=== PATIENT | female | born 1995 | race Caucasian/White ===

== ENCOUNTER 2016-08-28 15:36 | Emergency (ER) | payer OTHER ==
[2016-08-28 15:51] VITALS: BMI 23.7
--- NOTE | 2016-08-28 16:25 | PDOC ---
History of Present Illness - General Chief Complaint: Pain Stated Complaint: HEADACHES, LT SIDE PAIN Time Seen by Provider: 08/28/16 16:24 History Source: Patient Exam Limitations: No Limitations - History of Present Illness Initial Comments: 0CHIEF COMPLAINT: 20 y/o afebrile female with no significant PMH c/o left sided arm pain and pulling for the past 4 days. HISTORY OF PRESENT ILLNESS: The patient states the best way for her to describe the feeling is that someone is pulling her left arm and it is preventing her from sleep. She says the pain travels up the left side of her neck, into her left face and over into her left anterior chest. SHe states her left face, chest, arm and left leg all feel tingling and at times numb. She denies fever, chills, GUTIERREZ, changes in vision/hearing, earache, cough, sore throat , SOB, abd pain, back pain, hematuria, dysuria, trauma to the affected area. The patient is not currently working and cannot recall any offending injury. Vital signs on arrival are within normal limits. REVIEW OF SYSTEMS: GENERAL/CONSTITUTIONAL: No fever/chills. No weakness. No weight change. HEAD, EYES, EARS, NOSE AND THROAT: No change in vision. No ear pain or discharge. No sore throat. +left face tingling. CARDIOVASCULAR: +left chest pressure. No shortness of breath. RESPIRATORY: No cough, wheezing, or hemoptysis. GASTROINTESTINAL: No abd pain, nausea, vomiting, diarrhea. GENITOURINARY: No dysuria, frequency, or change in urination. MUSCULOSKELETAL: +left arm "pulling" and tingling. +left leg tingling. +left neck pain SKIN: No rash or easy bruising. NEUROLOGIC: No headache, vertigo, loss of consciousness, or loss of sensation. PHYSICAL EXAM: GENERAL: The patient is awake, alert, and fully oriented, in no acute distress. she is well appearing and ambulatory. HEAD: Normal with no signs of trauma. NECK: Symptoms reproduced with flexion of neck. No midline cervical spine TTP or step offs. TTP of left cervical paravertebral muscles, reproducing left arm symptoms. ENT: Pupils equal, round and reactive to light, extraocular movements intact, sclera anicteric, conjunctiva clear. LUNGS: Clear to auscultation bilaterally. Normal excursion. No respiratory distress or use of accessory muscles. CHEST WALL: Reproducible chest wall pain with palpation of left anterior chest wall. CV: RRR, S1/S2, no MRG. Cap refill < 2 sec. ABDOMEN: Soft, non-distended, non-tender even to deep palpation, no hepatomegaly or splenomegaly, no masses. EXTREMITIES: Normal range of motion, no edema. NEUROLOGICAL: Decreased sensation of sharp and light tough on left side of face , left upper extremity and left lower extremity. Normal speech, normal gait. CN II-XII grossly intact. Equal endless track vehicle mechanic strength b/l. Motor intact in b/l UEs and LEs. No facial drooping. No slurred speech. PSYCH: Normal mood, normal affect. SKIN: Warm, dry, normal turgor, no rashes or lesions noted. Past History - Past Medical History Allergies/Adverse Reactions: Allergies Allergy/AdvReac Type Severity Reaction Status Date / Time No Known Allergies Allergy Verified 08/28/16 15:51 Home Medications: Ambulatory Orders NK [No Known Home Medication] 08/28/16 Psychiatric Problems: No Suicide Attempt (Hx): No - Immunization History Immunization Up to Date: Yes (FLU ) - Psycho/Social/Smoking Cessation Hx Anxiety: No Suicidal Ideation: No Smoking Status: No Smoking History: Never smoked Have you smoked in the past 12 months: No Number of Cigarettes Smoked Daily: 0 Hx Alcohol Use: No Drug/Substance Use Hx: No Substance Use Type: None *Physical Exam - Vital Signs Last Vital Signs Temp Pulse Resp BP Pulse Ox 98.1 F 96 H 20 100/54 98 08/28/16 15:48 08/28/16 15:48 08/28/16 15:48 08/28/16 15:48 08/28/16 15:48 Heart Score/ECG Review - ECG Intrepretation Comment:: Twelve-lead EKG was performed and reviewed by . There is normal sinus rhythm with a normal rate. The axis is normal. The intervals are normal. There are no ST or T wave abnormalities. Impression: Normal twelve-lead EKG ED Treatment Course - LABORATORY CBC & Chemistry Diagram: 08/28/16 17:29 08/28/16 17:29 Medical Decision Making - Medical Decision Making A/P: 20 y/o female with left cervical radiculopathy. Plan is as follows: 1. hcg 2. ekg hcg - negative SPoke with Dr. De La O in the main ER. WIll start work up for labs and CT scan of the head in fastrack and then transfer the patient to the main ER. THe patient and her mother were made aware. *DC/Admit/Observation/Transfer Diagnosis at time of Disposition: Numbness and tingling sensation of skin - Discharge Dispostion Condition at time of disposition: Stable
[2016-08-28 17:55] LABS: BASOPHIL 0.5 % (0-2.0); EOSINOPHIL 3.4 % (0-4.5); MCH 29.5 pg (25.7-33.7); MCHC 32.9 g/dl (32.0-36.0); MEAN CELL VOLUME 89.9 fl (80-96); MEAN PLT VOLUME 11.1 fl (7.5-11.1); NEUTROPHILS 72.5 % (42.8-82.8); PLATELET COUNT 181 K/MM3 (134-434); RDW 13.3 % (11.6-15.6); WHITE BLOOD COUNT 9.2 K/mm3 (4.0-10.0)
[2016-08-28 18:22] LABS: ALBUMIN 4.1 g/dl (3.4-5.0); ANION GAP 8 (8-16); CO2 28 mmol/L (21-32); CREATININE 0.8 mg/dL (0.55-1.02); GLUCOSE,RANDOM 85 mg/dL (74-106); MAGNESIUM 2.4 mg/dL (1.8-2.4); SGOT/AST 13 U/L (15-37); SGPT/ALT 16 U/L (12-78)
[2016-08-28 18:28] LABS: ALK PHOS 62 U/L (45-117); BILIRUBIN,TOTAL 0.4 mg/dL (0.2-1.0); TOT PROT 7.7 g/dl (6.4-8.2); TROPONIN I < 0.02 ng/ml (0.00-0.05)
[2016-08-28 19:23] LABS: ERYTHROCYTE SEDIMENTATION RATE 15 mm/hr (0-20)
[2016-08-28] MEDS ORDERED: IBUPROFEN 400 MG TABLET (FP) PO ONE (21:07)
[2016-08-28] MEDS ORDERED: IBUPROFEN 600 MG TABLET (FP) PO ONE (21:28)
--- NOTE | 2016-08-28 21:47 | PDOC ---
*Physical Exam - Vital Signs Last Vital Signs Temp Pulse Resp BP Pulse Ox 98.1 F 96 H 20 100/54 98 08/28/16 15:48 08/28/16 15:48 08/28/16 15:48 08/28/16 15:48 08/28/16 15:48 - Physical Exam Comments: 08/28/16 21:45 Patient was seen initially in [facility] by ART Gutiérrez. Patient is a 20-year-old female who presents to the ER with several days of intermittent paresthesias involving the left sikh, left side of face, left side of the neck, left arm, left side of the trunk and left leg. Patient denies changes in visual acuity, diplopia or urinary or fecal incontinence. In the ER, patient is awake and alert , hemodynamically stable. Neurological evaluation reveals no sensory deficits, there is no sensory level that is appreciated and evaluation; DTRs are +2 at the knee joints, ankle joints and elbow joints bilaterally. I do not suspect acute demyelinating process at this time. Patient reports that she's been intermittently having current symptoms for over 2 years. Patient was seen and evaluated by her primary care physician referred to neurology and for an MRI of brain but has failed to follow up as of this time. We'll administer NSAIDs. Will discharge with neurology follow-up as scheduled. ED Treatment Course - LABORATORY CBC & Chemistry Diagram: 08/28/16 17:29 08/28/16 17:29 - ADDITIONAL ORDERS Additional order review: Laboratory Results 08/28/16 08/28/16 17:29 16:25 Sodium 139 Potassium 4.3 Chloride 103 Carbon Dioxide 28 Anion Gap 8 BUN 9 Creatinine 0.8 Creat Clearance w eGFR > 60 Random Glucose 85 Calcium 9.0 Magnesium 2.4 Total Bilirubin 0.4 AST 13 L ALT 16 Alkaline Phosphatase 62 D Creatine Kinase 64 Troponin I < 0.02 Total Protein 7.7 Albumin 4.1 Urine HCG, Qual Negative 08/28/16 17:29 RBC 4.34 MCV 89.9 MCHC 32.9 RDW 13.3 MPV 11.1 Neutrophils % 72.5 Lymphocytes % 16.9 Monocytes % 6.7 Eosinophils % 3.4 D Basophils % 0.5 - Medications Given in the ED: ED Medications Discontinued Medications Generic Name Dose Route Start Last Admin Trade Name Freq PRN Reason Stop Dose Admin Ibuprofen 400 mg 08/28/16 21:07 08/28/16 21:32 Motrin - PO 08/28/16 21:08 400 mg ONCE ONE Administration *DC/Admit/Observation/Transfer Diagnosis at time of Disposition: Numbness and tingling - Discharge Dispostion Disposition: HOME Condition at time of disposition: Stable - Referrals Referrals: Dai Garcia MD [Primary Care Provider] - - Patient Instructions Printed Discharge Instructions: DI for Numbness/tingling - Post Discharge Activity
[2016-08-28 21:57] VITALS: BP 102/64; PULSE 88; TEMP 98.6
--- NOTE | 2016-08-29 10:34 | EKG ---
Test Reason : Blood Pressure : / mmHG Vent. Rate : 085 BPM Atrial Rate : 085 BPM P-R Int : 126 ms QRS Dur : 084 ms QT Int : 370 ms P-R-T Axes : 021 019 013 degrees QTc Int : 440 ms NORMAL SINUS RHYTHM NORMAL ECG WHEN COMPARED WITH ECG OF 04-APR-2013 22:13, NO SIGNIFICANT CHANGE WAS FOUND Confirmed by DAXA SALEH MD ([id number]) on 08/29/2016 10:34:20 AM Referred By: RANDI Confirmed By:DAXA SALEH MD
== END 2016-08-28 21:55 | disposition home or self-care (01) ==
LOC: JER 15:36
DX: R20.0 Anesthesia of skin (principal)
CPT/HCPCS: 36415; 70450-TC; 80053; 82550; 83735; 84484; 84703; 85025; 85651; 93005; 93010; 99285-25

== ENCOUNTER 2017-04-10 18:59 | Emergency (ER) | payer OTHER ==
--- NOTE | 2017-04-10 19:04 | PDOC ---
Rapid Medical Evaluation Time Seen by Provider: 04/10/17 19:03 Medical Evaluation: Allergies Allergy/AdvReac Type Severity Reaction Status Date / Time No Known Allergies Allergy Verified 04/10/17 19:03 04/10/17 19:03 I have performed a brief in person evaluation of this patient. The patient presents with chief complaint of : cough and itch in throat for 2 months. no pmhx, no PMD. no fever. Pertinent PE findings: cough , non toxic stable vitals. afebrile I have ordered the following: none The patient will proceed to the ER for further evaluation.
[2017-04-10 19:06] VITALS: BP 154/111; PULSE 73; TEMP 98.7; BMI 24.7
--- NOTE | 2017-04-10 19:30 | PDOC ---
History of Present Illness - General Chief Complaint: Respiratory Stated Complaint: COLD SYMPTOMS Time Seen by Provider: 04/10/17 19:03 History Source: Patient Exam Limitations: No Limitations - History of Present Illness Initial Comments: 04/10/17 19:25 21-year-old female presents to the ED with complaints of nasal congestion and cough, and brown discharge from her nose for the past 1-2 months without relief of [id number] medication. Patient denies fever, difficulty breathing, dizziness, or sore throat. Patient is complaining of mild frontal pressure worsened when lying down Timing/Duration: reports: other (1-2 months) Severity: reports: mild Possible Cause: Yes: no prior episodes Associated Symptoms: reports: facial pain, headache, nasal congestion Past History - Travel Traveled outside of the country in the last 30 days: No - Past Medical History Allergies/Adverse Reactions: Allergies Allergy/AdvReac Type Severity Reaction Status Date / Time No Known Allergies Allergy Verified 04/10/17 19:03 Home Medications: Ambulatory Orders NK [No Known Home Medication] 08/28/16 COPD: No Psychiatric Problems: No Other medical history: DENIES. - Immunization History Immunization Up to Date: Yes (FLU ) - Suicide/Smoking/Psychosocial Hx Smoking Status: No Smoking History: Never smoked Have you smoked in the past 12 months: No Number of Cigarettes Smoked Daily: 0 Hx Alcohol Use: No Drug/Substance Use Hx: No Substance Use Type: None Patient Lives Alone: No Lives with/in: parents Review of Systems - Review of Systems Able to Perform ROS?: Yes Constitutional: No: Symptoms Reported HEENTM: Yes: Nose Congestion. No: Throat Pain Respiratory: Yes: Cough ABD/GI: No: Symptoms Reported Musculoskeletal: No: Symptoms Reported Integumentary: No: Symptoms Reported Neurological: Yes: Headache (frontal) *Physical Exam - Vital Signs Last Vital Signs Temp Pulse Resp BP Pulse Ox 98.7 F 73 19 154/111 99 04/10/17 19:03 04/10/17 19:03 04/10/17 19:03 04/10/17 19:03 04/10/17 19:03 - Physical Exam General Appearance: Yes: Nourished, Appropriately Dressed. No: Apparent Distress HEENT: positive: EOMI, JOSHUA, Pharynx Normal, Nasal Congestion, Sinus Tenderness (frontal). negative: Pale Conjunctivae Neck: positive: Supple. negative: Lymphadenopathy (R), Lymphadenopathy (L) Respiratory/Chest: positive: Lungs Clear, Normal Breath Sounds. negative: Respiratory Distress, Accessory Muscle Use Cardiovascular: positive: Regular Rhythm, Regular Rate. negative: Murmur Integumentary: positive: Normal Color, Warm, Moist Neurologic: positive: Motor Strength 5/5 (ambulatory) Medical Decision Making - Medical Decision Making 04/10/17 19:28 Patient with sinus pressure, nasal congestion, and cough for the past 1-2 months. Patient on exam with sinus pressure and symptoms suggestive sinusitis. Patient will be discharged home with antibiotics and nasal spray. *DC/Admit/Observation/Transfer Diagnosis at time of Disposition: Sinusitis - Discharge Dispostion Disposition: HOME Condition at time of disposition: Good - Referrals - Patient Instructions Printed Discharge Instructions: DI for Sinusitis Additional Instructions: Please take antibiotics as prescribed. Use nasal spray as prescribed. - Post Discharge Activity
== END 2017-04-10 19:54 | disposition home or self-care (01) ==
LOC: JERFT 18:59
DX: J01.90 Acute sinusitis, unspecified (principal)
CPT/HCPCS: 99281-25

== ENCOUNTER 2017-05-09 01:35 | Emergency (ER) | payer OTHER ==
[2017-05-09 02:05] VITALS: BP 102/49; PULSE 97; TEMP 98.6; BMI 25.7
--- NOTE | 2017-05-09 03:20 | PDOC ---
Attending Attestation - Resident Resident Name: Manohar Krause - ED Attending Attestation I have performed the following: I have examined & evaluated the patient, The case was reviewed & discussed with the resident, I agree w/resident's findings & plan, Exceptions are as noted - HPI HPI: 05/09/17 03:17 Pain and swollen bump under right armpit since Friday. Denies fever. - Physicial Exam PE: 05/09/17 03:19 Physical Exam General Appearance: Yes: Appropriately Dressed. No: Apparent Distress, Intoxicated HEENT: positive: EOMI, JOSHUA, Normal ENT Inspection, Normal Voice, TMs Normal, Pharynx Normal. negative: Pale Conjunctivae, Photophobia, Scleral Icterus (R), Scleral Icterus (L) Neck: positive: Trachea midline, Normal Thyroid, Supple. negative: Tender, Rigid, Carotid bruit, Stridor, Lymphadenopathy (R), Lymphadenopathy (L), Thyromegaly Respiratory/Chest: positive: Lungs Clear, Normal Breath Sounds. negative: Chest Tender, Respiratory Distress, Accessory Muscle Use, Labored Respiration, RES, Crackles, Rales, Rhonchi, Stridor, Wheezing, Dullness Cardiovascular: positive: Regular Rhythm, Regular Rate, S1, S2. negative: Edema , JVD, Murmur, Bradycardia, Tachycardia Vascular Pulses: Dorsalis-Pedis (R): 2+, Doralis-Pedis (L): 2+ Gastrointestinal/Abdominal: positive: Normal Bowel Sounds, Flat, Soft. negative : Tender, Organomegaly, Pulsatile Mass, Increased Bowel Sounds, Decreased BS, Distended, Guarding, Rebound, Hernia, Hepatomegaly, Spleenomegaly Lymphatic: negative: Adenopathy, Tenderness Musculoskeletal: positive: small lesion to right axilla. no erthyema, slightly fluctuant. negative: CVA Tenderness, Decreased Range of Motion Extremity: positive: Normal Capillary Refill, Normal Inspection, Normal Range of Motion, Pelvis Stable. negative: Tender, Pedal Edema, Swelling, Erythema Integumentary: positive: Normal Color, Dry, Warm. negative: Cyanotic, Erythema , Jaundice, Rash Neurologic: positive: dragline engineer II-XII NML intact, Fully Oriented, Alert, Normal Mood/ Affect, Motor Strength 5/5. negative: EOM Palsy, Facial Droop, Sensory Deficit
--- NOTE | 2017-05-09 03:47 | PDOC ---
History of Present Illness - General Chief Complaint: Pain Stated Complaint: PAIN IN RIGHT ARM Time Seen by Provider: 05/09/17 02:05 History Source: Patient Exam Limitations: No Limitations - History of Present Illness Initial Comments: 05/09/17 03:35 21F with no pmh presents with swelling and pain under her right armpit since Friday. She noticed some pus coming out of it but complains that it is still uncomfortable. No history of folliculitis Past History - Past Medical History Allergies/Adverse Reactions: Allergies Allergy/AdvReac Type Severity Reaction Status Date / Time No Known Allergies Allergy Verified 05/09/17 02:04 Home Medications: Ambulatory Orders Fluticasone Prop 0.05% Nasal [Flonase -] 1 spray NS BID #1 bot 04/10/17 COPD: No Psychiatric Problems: No - Immunization History Immunization Up to Date: Yes (FLU ) - Suicide/Smoking/Psychosocial Hx Smoking Status: No Smoking History: Never smoked Have you smoked in the past 12 months: No Number of Cigarettes Smoked Daily: 0 Information on smoking cessation initiated: No Hx Alcohol Use: No Drug/Substance Use Hx: No Substance Use Type: None Review of Systems - Review of Systems Able to Perform ROS?: Yes Is the patient limited Estonian proficient: No Constitutional: No: Symptoms Reported, Fever HEENTM: No: Symptoms Reported Respiratory: No: Symptoms reported Cardiac (ROS): No: Symptoms Reported ABD/GI: No: Symptoms Reported : No: Symptoms Reported Musculoskeletal: No: Symptoms Reported Integumentary: Yes: See HPI *Physical Exam - Vital Signs Last Vital Signs Temp Pulse Resp BP Pulse Ox 98.6 F 97 H 20 102/49 98 05/09/17 02:04 05/09/17 02:04 05/09/17 02:04 05/09/17 02:04 05/09/17 02:04 - Physical Exam General Appearance: Yes: Nourished, Appropriately Dressed. No: Apparent Distress HEENT: positive: EOMI, JOSHUA Respiratory/Chest: positive: Lungs Clear, Normal Breath Sounds. negative: Chest Tender, Respiratory Distress Cardiovascular: positive: Regular Rhythm, Regular Rate, S1, S2 Extremity: positive: Normal Capillary Refill, Normal Inspection, Normal Range of Motion Integumentary: positive: Normal Color, Dry, Warm, Other (swelling under right armpit, 3-4cm fluctuant lesion with purulence. no erythema or induration) Neurologic: positive: Fully Oriented, Alert, Normal Mood/Affect, Normal Response , Motor Strength 5/5 Procedures - Incision and Drainage I&D Site: Right: Axilla Betadine cleansed: Yes Anesthesia: 1% Lidocaine w/ Epi Blade Size: 11 Plain Packing: Yes Complications: none Medical Decision Making - Medical Decision Making 05/09/17 04:51 This is folliculitis. Incision and drainage performed. Patient ok to go home. *DC/Admit/Observation/Transfer Diagnosis at time of Disposition: Folliculitis - Discharge Dispostion Disposition: HOME Condition at time of disposition: Good Admit: No - Referrals - Patient Instructions Printed Discharge Instructions: DI for Folliculitis Additional Instructions: Well, you have folliculitis, which caused a skin abscess; what now? Return to the ER or any primary care provider in 24 to 48 hours. Come back to the ER if you experience any of the following symptom: fever, chills, reaccumulation of pus in the area, increased pain or redness, red streaks or increased swelling. - Post Discharge Activity
== END 2017-05-09 05:04 | disposition home or self-care (01) ==
LOC: JER 01:35
PROC: 0X940ZZ Drainage of Right Axilla, Open Approach (ICD-10-PCS; principal; 2017-05-09)
DX: L02.411 Cutaneous abscess of right axilla (principal); L73.8 Other specified follicular disorders
CPT/HCPCS: 99283-25

== ENCOUNTER 2017-05-19 19:36 | Emergency (ER) | payer OTHER ==
[2017-05-19 19:55] VITALS: BMI 25.7
--- NOTE | 2017-05-19 19:55 | PDOC ---
Rapid Medical Evaluation Chief Complaint: Headache Time Seen by Provider: 05/19/17 19:51 Medical Evaluation: Allergies Allergy/AdvReac Type Severity Reaction Status Date / Time No Known Allergies Allergy Verified 05/19/17 19:51 05/19/17 19:51 C/o headache, Photophobia, hurts to cough, and blow out nose. currently on augmentin for sinusitis. Hiostory iof headaches. Never this bad as per patient. PE: patient alert ox3. + nasal congestion. Plan: CBC, cmp, UA, UHCG 05/19/17 19:54
[2017-05-19 20:17] LABS: BASO % 0.5 % (0-2.0); EOS % 1.3 % (0-4.5); HEMATOCRIT 35.4 % (32.4-45.2); HEMOGLOBIN 11.7 GM/dL (10.7-15.3); LYMPH % 11.5 % (8-40); MCH 29.5 pg (25.7-33.7); MCHC 33.1 g/dl (32.0-36.0); MEAN CELL VOLUME 89.3 fl (80-96); MEAN PLT VOLUME 10.1 fl (7.5-11.1); MONO % 6.4 % (3.8-10.2); NEUT % 80.3 % (42.8-82.8); PLATELET COUNT 218 K/MM3 (134-434); RBC 3.96 M/mm3 (3.60-5.2); RDW 12.6 % (11.6-15.6); WHITE BLOOD COUNT 14.3 K/mm3 (4.0-10.0)
[2017-05-19] MEDS ORDERED: METOCLOPRAMIDE HCL INJECTION 10 MG/2 ML VIAL IVPUSH ONE (20:29)
[2017-05-19] MEDS ORDERED: SODIUM CHLORIDE 1,000 ML IV STA (20:29)
[2017-05-19] MEDS ORDERED: AMOX TR/POT CLAV 875MG/125MG TABLETS (FP) PO ONE (20:44)
[2017-05-19] MEDS ORDERED: METOCLOPRAMIDE HCL INJECTION 10 MG/2 ML VIAL ONE (20:48)
[2017-05-19] MEDS ORDERED: AMOX TR/POT CLAV 875MG/125MG TABLETS (FP) ONE (20:48)
--- NOTE | 2017-05-19 20:48 | PDOC ---
Attending Attestation - HPI HPI: 05/19/17 20:57 The patient is a 21 year old with a significant PMH of recurrent headaches, sinus surgery and GERD who presents to the emergency department with a progressively worsening headache beginning approximately 4 days ago. She describes her headache as a bilateral sensation which is worse in her forehead and maxillary regions with associated photophobia. She also notes cold-like symptoms including cough, headache, wheezing, and decreased PO intake. She reports being prescribed Augmentin for sinusitis on 05/09/2017 which she has been generally non-compliant with but notes taking a dose about 2 hours ago. Allergies: NKA - Physicial Exam PE: 05/19/17 21:45 Vitals: Triage Vital signs reviewed General Appearance: no acute distress, well nourished well developed, Head: Atraumatic, normocephalic Nose: Nares patent bilaterally;no nasal congestion Throat: Posterior oropharynx without erythema, mucous membranes moist, Cardiac: Regular rate and rhythm, no murmurs, no rubs, no gallops, Lungs: Clear to auscultation bilateral, good air movement bilaterally, Extremities: Full range of motion to all extremities, no cyanosis, clubbing, or edema Neuro: AOX3; Cranial Nerves 2-12 grossly intact, Strength intact to all extremities, Sensation intact to all extremities Psych: normal mood, normal affect <Que Stern - Last Filed: 05/19/17 23:02> - Resident Resident Name: Rell White - ED Attending Attestation I have performed the following: I have examined & evaluated the patient, The case was reviewed & discussed with the resident, I agree w/resident's findings & plan, Exceptions are as noted - Medical Decision Making 05/19/17 23:10 Well-appearing no apparent distress history and examination consistent with upper respiratory infection complicated by sinusitis and headache Differential diagnoses includes URI, sinusitis, migraine headache less likely meningitis given no meningeal signs well-appearing several days of symptomatology We'll treat with IV fluids Reglan Benadryl and reassess Reevaluation patient feels much better asking to go home. Fever improved with Toradol. No meningeal signs on examination. Findings, the need for follow-up and strict return instructions discussed with patient. <Cruz He - Last Filed: 05/19/17 23:12>
[2017-05-19 20:49] LABS: ALBUMIN 3.9 g/dl (3.4-5.0); ANION GAP 7 (8-16); BILIRUBIN,TOTAL 0.3 mg/dL (0.2-1.0); BLOOD UREA NITROGEN 5 mg/dL (7-18); CALCIUM 8.9 mg/dL (8.5-10.1); CHLORIDE 104 mmol/L (98-107); CO2 27 mmol/L (21-32); CREATININE 1.1 mg/dL (0.55-1.02); GLUCOSE,RANDOM 100 mg/dL (74-106); POTASSIUM 4.1 mmol/L (3.5-5.1); SGOT/AST 7 U/L (15-37); SGPT/ALT 11 U/L (12-78); SODIUM 138 mmol/L (136-145); TOT PROT 7.7 g/dl (6.4-8.2)
[2017-05-19 20:49] LABS: URINE APPEARANCE CLEAR; URINE BILIRUBIN NEGATIVE (NEGATIVE); URINE BLOOD NEGATIVE (NEGATIVE); URINE COLOR STRAW; URINE GLUCOSE (UA) NEGATIVE (NEGATIVE); URINE KETONE NEGATIVE (NEGATIVE); URINE LEUK ESTERASE NEGATIVE (NEGATIVE); URINE NITRITE NEGATIVE (NEGATIVE); URINE PROTEIN NEGATIVE (NEGATIVE); URINE UROBILINOGEN NEGATIVE mg/dL (0.2-1.0)
[2017-05-19 20:50] LABS: ALK PHOS 65 U/L (45-117)
[2017-05-19 20:52] LABS: HCG,QUALITATIVE URINE NEGATIVE
--- NOTE | 2017-05-19 21:10 | PDOC ---
History of Present Illness - General Chief Complaint: Migraine Headache Stated Complaint: HEADACHE Time Seen by Provider: 05/19/17 19:51 History Source: Patient Exam Limitations: No Limitations - History of Present Illness Initial Comments: 05/19/17 21:04 Patient is a 21F with history of an unknown sinus surgery when she was a child here today complaining of a headache of three days. Onset was 3 days ago, slowly growing in intensity. Patient denies neck pain. The pain is located bilaterally around both frontal and maxillary sinuses with associated photophobia. She denies fevers, vomiting. She states she was seen here 10 days ago and prescribed augmentin for sinusitis. Just started taking augmentin now. Endorses associated rhinorrhea. Denies chest pain, shortness of breath, abdominal pain. Past History - Past Medical History Allergies/Adverse Reactions: Allergies Allergy/AdvReac Type Severity Reaction Status Date / Time No Known Allergies Allergy Verified 05/19/17 19:51 Home Medications: Ambulatory Orders Fluticasone Prop 0.05% Nasal [Flonase -] 1 spray NS BID #1 bot 04/10/17 Acetaminophen [Tylenol] 650 mg PO QID PRN 05/19/17 Amoxicillin/Potassium Clav [Augmentin 875-125 Tablet] 1 each PO BID 05/19/17 Ibuprofen [Motrin -] 400 mg PO QID 05/19/17 COPD: No Psychiatric Problems: No - Immunization History Immunization Up to Date: Yes (FLU ) - Suicide/Smoking/Psychosocial Hx Smoking Status: No Smoking History: Never smoked Have you smoked in the past 12 months: No Number of Cigarettes Smoked Daily: 0 Hx Alcohol Use: No Drug/Substance Use Hx: No Substance Use Type: None Review of Systems - Review of Systems Comments:: 05/19/17 21:08 GENERAL/CONSTITUTIONAL: No fever or chills. No weakness. HEAD, EYES, EARS, NOSE AND THROAT: No change in vision. No ear pain or discharge. No sore throat. CARDIOVASCULAR: No chest pain or shortness of breath RESPIRATORY: No cough, wheezing, or hemoptysis. GASTROINTESTINAL: No nausea, vomiting, diarrhea or constipation. GENITOURINARY: No dysuria, frequency, or change in urination. SKIN: No rash NEUROLOGIC: Positive for headache. Negative for vertigo, loss of consciousness, or change in strength/sensation. HEMATOLOGIC/LYMPHATIC: No anemia, easy bleeding, or history of blood clots. ALLERGIC/IMMUNOLOGIC: No hives or skin allergy. *Physical Exam - Vital Signs Last Vital Signs Temp Pulse Resp BP Pulse Ox 100.8 F H 113 H 22 131/81 99 05/19/17 19:53 05/19/17 19:53 05/19/17 19:53 05/19/17 19:53 05/19/17 19:53 - Physical Exam Comments: 05/19/17 21:10 GENERAL: Awake, alert, and fully oriented, holding coat over eyes HEAD: No signs of trauma, normocephalic, atraumatic EYES: PERRLA, EOMI, sclera anicteric, conjunctiva clear ENT: Auricles normal inspection, hearing grossly normal, nares patent, oropharynx clear without exudates. Moist mucosa NECK: Normal ROM, supple, no lymphadenopathy, JVD, or masses LUNGS: No distress, speaks full sentences, clear to auscultation bilaterally HEART: Regular rate and rhythm, normal S1 and S2, no murmurs, rubs or gallops, peripheral pulses normal and equal bilaterally. ABDOMEN: Soft, nontender, normoactive bowel sounds. No guarding, no rebound. No masses EXTREMITIES: Normal inspection, Normal range of motion, no edema. No clubbing or cyanosis. NEUROLOGICAL: Cranial nerves II through XII grossly intact. Normal speech, normal gait, no focal sensorimotor deficits SKIN: Warm, Dry, normal turgor, no rashes or lesions noted. ED Treatment Course - LABORATORY CBC & Chemistry Diagram: 05/19/17 19:59 05/19/17 19:59 - ADDITIONAL ORDERS Additional order review: Laboratory Results 05/19/17 05/19/17 20:09 19:59 Sodium 138 Potassium 4.1 Chloride 104 Carbon Dioxide 27 Anion Gap 7 L BUN 5 L Creatinine 1.1 H Creat Clearance w eGFR > 60 Random Glucose 100 Calcium 8.9 Total Bilirubin 0.3 D AST 7 L ALT 11 L Alkaline Phosphatase 65 Total Protein 7.7 Albumin 3.9 Urine Color Straw Urine Appearance Clear Urine pH 9.0 H D Ur Specific [place] 1.013 Urine Protein Negative Urine Glucose (UA) Negative Urine Ketones Negative Urine Blood Negative Urine Nitrite Negative Urine Bilirubin Negative Urine Urobilinogen Negative Ur Leukocyte Esterase Negative Urine HCG, Qual Negative 05/19/17 19:59 RBC 3.96 MCV 89.3 MCHC 33.1 RDW 12.6 MPV 10.1 Neutrophils % 80.3 Lymphocytes % 11.5 D Monocytes % 6.4 Eosinophils % 1.3 Basophils % 0.5 Medical Decision Making - Medical Decision Making 05/19/17 21:12 21F with history of unknown sinus procedure here today complaining a headache. Vital signs notable for fever with tachycardia. Neuro exam normal. Differential diagnosis is weighted towards migraine vs sinusitis. Subarachnoid hemorrhage and meningitis not suggested by history or physical. Will treat with fluids, benadryl, reglan. Will reassess. 05/19/17 21:34 Laboratory Tests 05/19/17 05/19/17 05/19/17 19:59 19:59 20:09 WBC 14.3 H D Hgb 11.7 Hct 35.4 Plt Count 218 D Creatinine 1.1 H Creat Clearance w eGFR > 60 Urine Nitrite Negative Ur Leukocyte Esterase Negative Urine HCG, Qual Negative CBC shows leukocytosis. H/H normal. Kidney function normal. UA negative. Upreg negative. 05/19/17 22:42 After fluids, toradol and tylenol, patient's fever remains at 100.8 with small amount of tachycardia to 104. Patient reports being tired, but feeling better and wanting to go home. Will discharge with instructions to take tylenol for fever, finish the augmentin she started taking, and follow up with a PCP. 05/19/17 23:12 Patient no longer febrile or tachycardic. Discharged home. *DC/Admit/Observation/Transfer Diagnosis at time of Disposition: Headache - Discharge Dispostion Disposition: HOME Condition at time of disposition: Good Admit: No - Referrals Referrals: Tim Cuellar MD [Staff Physician] - - Patient Instructions Printed Discharge Instructions: DI for Migraine Additional Instructions: Please take tylenol as directed on the bottle to help control your fever and drink plenty of fluids. Please continue taking your augmentin as directed until the entire bottle is finished. Please return if you have any new, worsening or concerning symptoms. Please follow up with a PCP this week, a referral to one available locally has been included in your discharge paperwork. - Post Discharge Activity
[2017-05-19] MEDS ORDERED: ACETAMINOPHEN 325 MG TABLET (FP) PO ONE (21:35)
[2017-05-19] MEDS ORDERED: KETOROLAC TROMETHAMINE 30 MG/1 ML VIAL IVPUSH ONE (21:43)
[2017-05-19] MEDS ORDERED: ACETAMINOPHEN 325 MG TABLET (FP) ONE (21:48)
[2017-05-19] MEDS ORDERED: KETOROLAC TROMETHAMINE 30 MG/1 ML VIAL ONE (22:17)
[2017-05-19 23:25] VITALS: BP 100/56; PULSE 107; TEMP 99.4
== END 2017-05-19 23:10 | disposition home or self-care (01) ==
LOC: JER 19:36
PROC: 3E033GC Introduction of Other Therapeutic Substance into Peripheral Vein, Percutaneous Approach (ICD-10-PCS; principal; 2017-05-19)
PROC: 3E033GC Introduction of Other Therapeutic Substance into Peripheral Vein, Percutaneous Approach (ICD-10-PCS; 2017-05-19)
PROC: 3E033NZ Introduction of Analgesics, Hypnotics, Sedatives into Peripheral Vein, Percutaneous Approach (ICD-10-PCS; 2017-05-19)
DX: R51 Headache (principal)
CPT/HCPCS: 36415; 80053; 81003; 84703; 85025; 96374; 96375; 99282-25

== ENCOUNTER 2017-05-21 21:21 | Emergency (ER) | payer OTHER ==
--- NOTE | 2017-05-21 21:33 | PDOC ---
Rapid Medical Evaluation Time Seen by Provider: 05/21/17 21:29 Medical Evaluation: Allergies Allergy/AdvReac Type Severity Reaction Status Date / Time No Known Allergies Allergy Verified 05/19/17 19:51 05/21/17 21:29 I have performed a brief in-person evaluation of this patient. The patient presents with a chief complaint of: revist - sinus infection/fever/ migraine, took 2 excedrin, now feels chest tightness x 1 hour, "feels like i can 't breathe" Pertinent physical exam findings: tachy I have ordered the following: ekg The patient will proceed to the ED for further evaluation. Discharge Disposition - Diagnosis Shortness of breath - Referrals - Patient Instructions - Post Discharge Activity
[2017-05-21 21:34] VITALS: BP 137/86; PULSE 107; TEMP 97.8; BMI 25.7
[2017-05-21 22:25] LABS: COCAINE, UR NEGATIVE ng/ml (CUTOFF=300); METHADONE, UR NEGATIVE ng/ml (CUTOFF=300); OPIATES, URI NEGATIVE ng/ml (CUTOFF=300); PHENCYCLIDINE,URINE NEGATIVE ng/ml (CUTOFF=25); URINE AMPHETAMINES NEGATIVE ng/ml (CUTOFF=500); URINE BARBITURATES NEGATIVE ng/ml (CUTOFF=200); URINE BENZODIAZEPINES NEGATIVE ng/ml (CUTOFF=200)
--- NOTE | 2017-05-21 23:35 | PDOC ---
History of Present Illness - General Chief Complaint: Shortness of Breath Stated Complaint: S.O.B/ CHEST PAIN Time Seen by Provider: 05/21/17 21:29 History Source: Patient - History of Present Illness Initial Comments: 05/21/17 23:58 21-year-old female complaining of taking 2 tablets of Excedrin at home prior to arrival patient noted shortness of breath, palpitation. Patient was seen in the emergency room 2 days ago for migraine headache and was treated with IV fluids. Patient reports that she doesn't have a primary care doctor and has not followed up with anyone. Patient had reports that she has not taken an Excedrin tablet for a very long time and denies having any previous reaction to it. Patient reports that now her symptoms have since subsided, however is having burning to epigastrium up to the throat. Reports that the headache is now gone and shortness of breath has also resolved. Patient is currently taking Augmentin for sinusitis Past History - Past Medical History Allergies/Adverse Reactions: Allergies Allergy/AdvReac Type Severity Reaction Status Date / Time No Known Allergies Allergy Verified 05/21/17 23:21 Home Medications: Ambulatory Orders Acetaminophen [Tylenol] 650 mg PO QID PRN 05/19/17 Amoxicillin/Potassium Clav [Augmentin 875-125 Tablet] 1 each PO BID 05/19/17 Ibuprofen [Motrin -] 400 mg PO QID 05/19/17 COPD: No Psychiatric Problems: No - Immunization History Immunization Up to Date: Yes (FLU ) - Suicide/Smoking/Psychosocial Hx Smoking Status: No Smoking History: Never smoked Have you smoked in the past 12 months: No Number of Cigarettes Smoked Daily: 0 Information on smoking cessation initiated: No Hx Alcohol Use: No Drug/Substance Use Hx: No Substance Use Type: None Review of Systems - Review of Systems Able to Perform ROS?: Yes Is the patient limited Estonian proficient: No Constitutional: No: Symptoms Reported, See HPI, Chills, Diaphoresis, Fever, Loss of Appetite, Malaise, Night Sweats, Weakness, Weight Stable, Unintentional Wgt. Loss, Unexplained wgt Loss, Other Respiratory: Yes: Shortness of Breath ABD/GI: Yes: Nausea, Abdominal cramping (pigastric are) Neurological: Yes: Headache *Physical Exam - Vital Signs Last Vital Signs Temp Pulse Resp BP Pulse Ox 97.8 F 107 H 19 137/86 100 05/21/17 21:32 05/21/17 21:32 05/21/17 21:32 05/21/17 21:32 05/21/17 21:32 - Physical Exam General Appearance: Yes: Appropriately Dressed Respiratory/Chest: positive: Lungs Clear, Normal Breath Sounds Cardiovascular: positive: Regular Rhythm, Regular Rate Gastrointestinal/Abdominal: positive: Normal Bowel Sounds, Soft. negative: Tender (mild tenderness to the Epigastric area) Musculoskeletal: positive: Normal Inspection Extremity: positive: Normal Capillary Refill, Normal Inspection, Normal Range of Motion Integumentary: positive: Normal Color, Dry, Warm Neurologic: positive: Fully Oriented, Alert, Normal Mood/Affect ED Treatment Course - ADDITIONAL ORDERS Additional order review: Laboratory Results 05/21/17 05/21/17 19:27 19:27 Urine HCG, Qual Negative Opiates Screen Negative Methadone Screen Negative Barbiturate Screen Negative Phencyclidine Screen Negative Ur Amphetamines Screen Negative MDMA (Ecstasy) Screen Negative Benzodiazepines Screen Negative Cocaine Screen Negative U Marijuana (THC) Screen Negative Progress Note - Progress Note Progress Note: Likely reaction to Excedrin use; Gastritis P: zofran and maalox will reevaluate Medical Decision Making - Medical Decision Making 05/22/17 00:27 feeling better *DC/Admit/Observation/Transfer Diagnosis at time of Disposition: Headache, Caffeine intoxication without complication GERD (gastroesophageal reflux disease) Qualifiers: Esophagitis presence: without esophagitis Qualified Code(s): K21.9 - Gastro- esophageal reflux disease without esophagitis - Discharge Dispostion Disposition: HOME - Referrals - Patient Instructions Printed Discharge Instructions: Gastritis (Alternative Therapy) Additional Instructions: Avoid using caffeine. Drink plenty of fluids you may take Maalox every 6 hours as needed for abdominal discomfort and reflux. Follow-up with your doctor as soon as possible. - Post Discharge Activity Forms/Work/School Notes: Back to Work
[2017-05-21] MEDS ORDERED: MAG HYDROX/AL HYDROX/SIMETH 30 ML UNIT-DOSE CUP PO ONE (23:42)
[2017-05-21] MEDS ORDERED: ONDANSETRON *ODT* 4 MG TABLET SL ONE (23:42)
[2017-05-21] MEDS ORDERED: MAG HYDROX/AL HYDROX/SIMETH 30 ML UNIT-DOSE CUP ONE (23:48)
[2017-05-21] MEDS ORDERED: ONDANSETRON *ODT* 4 MG TABLET ONE (23:48)
--- NOTE | 2017-05-22 00:43 | PDOC ---
*Physical Exam - Vital Signs Last Vital Signs Temp Pulse Resp BP Pulse Ox 97.8 F 107 H 19 137/86 100 05/21/17 21:32 05/21/17 21:32 05/21/17 21:32 05/21/17 21:32 05/21/17 21:32 ED Treatment Course - ADDITIONAL ORDERS Additional order review: Laboratory Results 05/21/17 05/21/17 19:27 19:27 Urine HCG, Qual Negative Opiates Screen Negative Methadone Screen Negative Barbiturate Screen Negative Phencyclidine Screen Negative Ur Amphetamines Screen Negative MDMA (Ecstasy) Screen Negative Benzodiazepines Screen Negative Cocaine Screen Negative U Marijuana (THC) Screen Negative - Medications Given in the ED: ED Medications Discontinued Medications Generic Name Dose Route Start Last Admin Trade Name Alie PRN Reason Stop Dose Admin Al Hydroxide/Mg Hydroxide 30 ml 05/21/17 23:42 05/22/17 00:07 Mylanta Oral Suspension - PO 05/21/17 23:43 30 ml ONCE ONE Administration Ondansetron HCl 4 mg 05/21/17 23:42 05/21/17 23:49 Zofran Odt - SL 05/21/17 23:43 4 mg ONCE ONE Administration Medical Decision Making - Medical Decision Making 05/22/17 00:43 agree with care from KARI Zacarias *DC/Admit/Observation/Transfer Diagnosis at time of Disposition: Headache, Caffeine intoxication without complication GERD (gastroesophageal reflux disease) Qualifiers: Esophagitis presence: without esophagitis Qualified Code(s): K21.9 - Gastro- esophageal reflux disease without esophagitis - Discharge Dispostion Disposition: HOME - Referrals - Patient Instructions Printed Discharge Instructions: Gastritis (Alternative Therapy) Additional Instructions: Avoid using caffeine. Drink plenty of fluids you may take Maalox every 6 hours as needed for abdominal discomfort and reflux. Follow-up with your doctor as soon as possible. - Post Discharge Activity Forms/Work/School Notes: Back to Work
--- NOTE | 2017-05-22 11:40 | EKG ---
Test Reason : Blood Pressure : / mmHG Vent. Rate : 081 BPM Atrial Rate : 081 BPM P-R Int : 144 ms QRS Dur : 094 ms QT Int : 382 ms P-R-T Axes : 018 017 -10 degrees QTc Int : 443 ms NORMAL SINUS RHYTHM RSR' OR QR PATTERN IN V1 SUGGESTS RIGHT VENTRICULAR CONDUCTION DELAY BORDERLINE ECG WHEN COMPARED WITH ECG OF 28-AUG-2016 16:56, NO SIGNIFICANT CHANGE WAS FOUND Confirmed by THERESE DILL, DAXA ([id number]) on 05/22/2017 11:39:28 AM Referred By: Confirmed By:DAXA SALEH MD
== END 2017-05-22 00:43 | disposition home or self-care (01) ==
LOC: JER 21:21
DX: K21.9 Gastro-esophageal reflux disease without esophagitis (principal); R51 Headache; R06.02 Shortness of breath; T43.615A Adverse effect of caffeine, initial encounter; Y92.038 Other place in apartment as the place of occurrence of the external cause
CPT/HCPCS: 80307; 84703; 93005; 93010; 99282-25

== ENCOUNTER 2019-11-02 19:58 | Emergency (ER) | payer OTHER ==
[2019-11-02] MEDS ORDERED: ONDANSETRON 4 MG/2 ML VIAL IVPUSH ONE (20:01)
[2019-11-02] MEDS ORDERED: ACETAMINOPHEN 1000 MG/100 ML VIAL (NON FORMULARY) IVPB ONE (20:01)
[2019-11-02] MEDS ORDERED: SODIUM CHLORIDE 1,000 ML IV STA ×2 (20:01→21:58)
--- NOTE | 2019-11-02 20:01 | PDOC ---
Rapid Medical Evaluation Time Seen by Provider: 11/02/19 19:59 Medical Evaluation: Allergies Allergy/AdvReac Type Severity Reaction Status Date / Time No Known Allergies Allergy Verified 05/21/17 23:21 11/02/19 19:59 I have performed a brief in-person evaluation of this patient. CC: foodstuff vomiting today; LMP-last week of September PE: No focal findings Orders: labs, IVF, Zofran Patient will proceed to ED for further evaluation. Discharge Disposition - Diagnosis Nausea & vomiting - Referrals - Patient Instructions - Post Discharge Activity
[2019-11-02 20:02] VITALS: TEMP 98.7; BMI 24.0
--- NOTE | 2019-11-02 20:21 | PDOC ---
History of Present Illness - General Chief Complaint: Nausea/Vomiting Stated Complaint: VOMITTING/WEAKNESS Time Seen by Provider: 11/02/19 19:59 History Source: Patient - History of Present Illness Initial Comments: 11/02/19 22:50 24-year-old female complaining of nausea vomiting and one episode of diarrhea since yesterday. Patient reports eating ravioli last night for dinner feeling unwell after. Patient has generalized abdominal discomfort right before having diarrhea. No abdominal pain at this time. No past medical history Past History - Medical History Allergies/Adverse Reactions: Allergies Allergy/AdvReac Type Severity Reaction Status Date / Time metoclopramide [From Reglan] AdvReac Verified 11/02/19 22:50 Home Medications: Ambulatory Orders Acetaminophen [Tylenol] 650 mg PO QID PRN 05/19/17 Amoxicillin/Potassium Clav [Augmentin 875-125 Tablet] 1 each PO BID 05/19/17 Ibuprofen [Motrin -] 400 mg PO QID 05/19/17 COPD: No Psychiatric Problems: No - Reproductive History Is Patient Now?: No - Immunization History Immunization Up to Date: Yes (FLU ) - Psycho-Social/Smoking History Smoking Status: No Smoking History: Never smoked Have you smoked in the past 12 months: No Number of Cigarettes Smoked Daily: 0 - Substance Abuse Hx (Audit-C & DAST Scrn) How often the patient has a drink containing alcohol: 2-3 times / week Number of drinks the patient has on a typical day: 1 or 2 How often the patient has six or more drinks on one occasion: Never Score: In Men: 4 or > Positive; In Women: 3 or > Positive: 3 Screen Result (Pos requires Nsg. Audit-10AR): Positive In the last yr the pt used illegal drug/Rx for NonMed reason: No Score: Yes response is considered Positive: 0 Screen Result (Positive result requires Nsg. DAST-10): Negative Abd/GI Specific PMHX - Complaint Specific PMHX Colitis: No Diverticulitis: No Gall Bladder Disease: No GERD: No Hepatitis: No Irritable Bowel Synd (IBS): No Pancreatitis: No GI Ulcer Disease: No *Physical Exam - Vital Signs Last Vital Signs Temp Pulse Resp BP Pulse Ox 98.7 F 88 18 111/75 97 11/02/19 19:59 11/02/19 19:59 11/02/19 19:59 11/02/19 19:59 11/02/19 19:59 - Physical Exam General Appearance: Yes: Appropriately Dressed Respiratory/Chest: positive: Lungs Clear, Normal Breath Sounds Cardiovascular: positive: Regular Rhythm, Regular Rate Gastrointestinal/Abdominal: positive: Normal Bowel Sounds, Soft. negative: Tender Extremity: positive: Normal Capillary Refill, Normal Inspection Integumentary: positive: Normal Color, Dry, Warm Neurologic: positive: Fully Oriented, Normal Mood/Affect ED Treatment Course - LABORATORY CBC & Chemistry Diagram: 11/02/19 20:16 11/02/19 20:16 ED Progress Note - Progress Note Progress Note: 11/02/19 22:57 A: nausea vomiting likely gastroenteritis P: labs ua IVF antiemetics pepcid Medical Decision Making - Medical Decision Making 11/02/19 22:49 patient has dystonic reaction from reglan resolved with benadryl 11/02/19 22:50 plan to po challenge 11/02/19 22:58 no abdominal pain. feeling plan to po challenge 11/02/19 23:21 Patient is feeling much better currently p.o. challenging. No vomiting will DC home to continue p.o. hydration. COVID test pending we will call with results 11/02/19 23:30 Ua: bacteria > 36 epithelial cells no urinary symptoms. Discharge - Discharge Information Problems reviewed: Yes Clinical Impression/Diagnosis: Gastroenteritis Nausea & vomiting Qualifiers: Vomiting type: unspecified Vomiting Intractability: unspecified Qualified Code(s): R11.2 - Nausea with vomiting, unspecified Condition: Improved Disposition: HOME - Follow up/Referral - Patient Discharge Instructions Patient Printed Discharge Instructions: DI for Vomiting -- Adult Additional Instructions: Drink plenty of fluids start a BRAT ( bananas, rice apples toast) follow up with your doctor return to the ER if symptoms worsen - Post Discharge Activity Work/Back to School Note: Back to Work
[2019-11-02] MEDS ORDERED: ACETAMINOPHEN INJECTION 100 ML IVPB ONE (20:22)
[2019-11-02 20:39] LABS: BASO % 0.6 % (0-2.0); EOS % 0.2 % (0-4.5); HEMATOCRIT 41.2 % (32.4-45.2); HEMOGLOBIN 13.5 GM/dL (10.7-15.3); LYMPH % 10.1 % (8-40); MCH 30.1 pg (25.7-33.7); MCHC 32.9 g/dl (32.0-36.0); MEAN CELL VOLUME 91.6 fl (80-96); MEAN PLT VOLUME 10.8 fl (7.5-11.1); MONO % 2.8 % (3.8-10.2); NEUT % 86.3 % (42.8-82.8); PLATELET COUNT 232 K/MM3 (134-434); RDW 13.2 % (11.6-15.6); WHITE BLOOD COUNT 13.7 K/mm3 (4.0-10.0)
[2019-11-02 20:54] LABS: EPI CELLS >36 /uL (0-25.1); HYALINE CASTS 2 /uL (0-3.1); PH,URINE 7.5 (5.0-8.0); URINE APPEARANCE CLOUDY; URINE BACTERIA 6938 /uL (0-1359); URINE BILIRUBIN NEGATIVE (NEGATIVE); URINE COLOR YELLOW; URINE GLUCOSE (UA) NEGATIVE (NEGATIVE); URINE KETONE NEGATIVE (NEGATIVE); URINE LEUK ESTERASE NEGATIVE (NEGATIVE); URINE NITRITE NEGATIVE (NEGATIVE); URINE PROTEIN TRACE (NEGATIVE); URINE RBC 53 /uL (0-23.9); URINE WBC 32 /uL (0-25.8)
[2019-11-02] MEDS ORDERED: FAMOTIDINE 20 MG/50 ML IVPB 20 MG/50 ML MG IVPB ONE ×2 (20:55→21:01)
[2019-11-02 20:56] LABS: HCG,QUALITATIVE URINE Negative
[2019-11-02 20:57] LABS: ALBUMIN 4.5 g/dl (3.4-5.0); BILIRUBIN,TOTAL 0.4 mg/dL (0.2-1); BLOOD UREA NITROGEN 9.6 mg/dL (7-18); CALCIUM 9.3 mg/dL (8.5-10.1); POTASSIUM 4.4 mmol/L (3.5-5.1); TOT PROT 8.4 g/dl (6.4-8.2)
[2019-11-02] MEDS ORDERED: METOCLOPRAMIDE HCL INJECTION 10 MG/2 ML VIAL IVPB ONE (21:58)
[2019-11-02] MEDS ORDERED: METOCLOPRAMIDE HCL INJECTION 10 MG/2 ML VIAL ONE (22:14)
[2019-11-02 23:43] VITALS: BP 109/65; PULSE 91
== END 2019-11-02 23:43 | disposition home or self-care (01) ==
LOC: JER 19:58
PROC: 3E0333Z Introduction of Anti-inflammatory into Peripheral Vein, Percutaneous Approach (ICD-10-PCS; principal; 2019-11-02)
PROC: 3E033GC Introduction of Other Therapeutic Substance into Peripheral Vein, Percutaneous Approach (ICD-10-PCS; 2019-11-02)
PROC: 3E0337Z Introduction of Electrolytic and Water Balance Substance into Peripheral Vein, Percutaneous Approach (ICD-10-PCS; 2019-11-02)
DX: R11.2 Nausea with vomiting, unspecified (principal)
CPT/HCPCS: 36415; 80053; 81003; 83690; 84703; 85025; 87086; 99284-25; J0131; U0003

== ENCOUNTER 2021-07-12 13:08 | Emergency (ER) | payer OTHER ==
[2021-07-12 13:21] VITALS: BP 108/73; PULSE 97; TEMP 99.5; BMI 26.5
== END 2021-07-12 13:55 | disposition home or self-care (01) ==
LOC: JERFT 13:08
DX: J01.10 Acute frontal sinusitis, unspecified (principal)
CPT/HCPCS: 99281-25

== ENCOUNTER 2024-01-25 18:03 | Emergency (ER) | payer SELFPAY ==
[2024-01-25 18:10] VITALS: BP 109/72; PULSE 95; RESP 18; TEMP 98.3; BMI 27.4
[2024-01-25] MEDS ORDERED: LIDOCAINE 2.5%/PRILOCAINE 2.5% (5 Gram/TUBE) TP ONE (19:01)
[2024-01-25] MEDS ORDERED: ACETAMINOPHEN 500 MG TABLET (FP) ONE (19:02)
[2024-01-25] MEDS ORDERED: IBUPROFEN 600 MG TABLET (FP) PO ONE (19:02)
[2024-01-25] MEDS: LIDOCAINE 2.5%/PRILOCAINE 2.5% (5 Gram/TUBE) TP ONE (19:03)
[2024-01-25] MEDS: ACETAMINOPHEN 500 MG TABLET (FP) PO ONE (19:06)
[2024-01-25] MEDS: IBUPROFEN 600 MG TABLET (FP) PO ONE (19:06)
[2024-01-25] MEDS ORDERED: LIDOCAINE HCL 2% (20ML MULTI-DOSE VIAL) ONE (20:30)
[2024-01-25] MEDS ORDERED: CEPHALEXIN MONOHYDRATE 500 MG CAPSULE (UD) ONE (21:12)
[2024-01-25] MEDS: CEPHALEXIN MONOHYDRATE 500 MG CAPSULE (UD) PO ONE (21:14)
[2024-01-25] MEDS: LIDOCAINE HCL 1%, 10 MG/ML (50 mL VIAL) INF ONE (21:17)
== END 2024-01-25 21:25 | disposition home or self-care (01) ==
LOC: JERFT 18:03
PROC: 0HQ8XZZ Repair Buttock Skin, External Approach (ICD-10-PCS; principal; 2024-01-25)
DX: L02.31 Cutaneous abscess of buttock (principal)
CPT/HCPCS: 99283-25

== ENCOUNTER 2024-01-27 13:50 | Emergency (ER) | payer SELFPAY ==
[2024-01-27 13:57] VITALS: BP 104/68; PULSE 81; RESP 20; TEMP 97.6; BMI 27.4
== END 2024-01-27 14:33 | disposition home or self-care (01) ==
LOC: JERFT 13:50
DX: Z48.01 Encounter for change or removal of surgical wound dressing (principal); L02.31 Cutaneous abscess of buttock
CPT/HCPCS: 99283-25